=== PATIENT | male | born 1990 | race Caucasian/White ===

== ENCOUNTER → 2020-08-20 11:03 | Outpatient (BNVA) | payer BC, OTHER, SELFPAY | PROVIDERS: Family Provider Emergency Medicine; PCP Emergency Medicine; Visit Provider Counselor Professional | DX: F41.1 Generalized anxiety disorder (principal); F10.20 Alcohol dependence, uncomplicated; Z63.0 Problems in relationship with spouse or partner | CPT/HCPCS: 90791 ==